=== PATIENT | male | born 2000 | race Caucasian/White ===

== ENCOUNTER 2019-12-05 17:21 | Emergency (ER) | payer OTHER ==
[~2019-12-05] VITALS: Ht 187.9 cm; Wt 90.7 kg
[~2019-12-05 17:21] MED LIST: MOTRIN400 MG PO; NAPROSYN500 MG PO; VIBRAMYCIN100 MG PO; ZITHROMAX Z PA250 MG PO
[2019-12-05 18:17] LABS: BASO % 0.7 % (0.0-1.0); EOS # 0.2 10*3/uL (0.0-0.4); EOS % 3.4 % (1.0-4.0); HEMATOCRIT 44.3 % (42.0-52.0); HEMOGLOBIN 15.2 g/dl (14.0-18.0); LYMPH # 1.2 10*3/uL (1.3-4.4); LYMPH % 20.8 % (27.0-41.0); MEAN CORPUSCULAR HGB 30.5 pg (27.0-31.0); MEAN CORPUSCULAR HGB CONC 34.3 g/dl (33.0-37.0); MEAN PLATELET VOLUME 11.4 fl (9.6-12.3); MONO # 0.9 10*3/uL (0.1-1.0); MONO % 15.6 % (3.0-9.0); NEUT # 3.5 10*3/uL (2.3-7.9); NEUT % 59.3 % (47.0-73.0); PLATELET COUNT AUTOMATED 277 10*3/uL (130-400); RED BLOOD COUNT 4.98 10*6/uL (4.50-5.90)
[2019-12-05 18:27] LABS: ACT PARTIAL THROMBO TIME 28.5 SECONDS (20.0-32.1)
[2019-12-05 18:34] LABS: ALBUMIN 4.3 gm/dl (3.1-4.5); ALKALINE PHOSPHATASE 61 U/L (45-117); BUN 14 mg/dl (7-24); CHLORIDE 107 mmol/L (98-107); CREATININE 0.97 mg/dL (0.70-1.30); POTASSIUM 4.1 mmol/L (3.5-5.1); SGOT/AST 17 IU/L (3-35); SGPT/ALT 21 U/L (12-78); SODIUM 140 mmol/L (136-145); TOTAL PROTEIN 7.9 gm/dL (6.4-8.2)
[2019-12-05 19:07] LABS: TROPONIN I < 0.015 ng/ml (<0.045)
[2019-12-05 22:50] VITALS: BP 126/74
== END 2019-12-05 22:55 | disposition admitted as inpatient to this hospital (09) ==
LOC: ED 17:21
PROVIDERS: Internal Medicine
DX: R07.89 Other chest pain (principal); F17.200 Nicotine dependence, unspecified, uncomplicated; Z88.0 Allergy status to penicillin; Z79.899 Other long term (current) drug therapy

== ENCOUNTER 2019-12-05 22:21 | Inpatient (IN) | payer OTHER ==
[~2019-12-05] VITALS: Ht 188 cm; Wt 98.5 kg
[2019-12-05 22:55] VITALS: BP 147/64
[2019-12-06] VITALS: BP 147/64
[2019-12-06 02:20] LABS: URINE AMPHETAMINES < 1000 (1000ng/ml); URINE BARBITURATES < 200 (200ng/ml); URINE BENZODIAZEPINES < 200 (200ng/ml); URINE CANNABINOIDS (THC) < 50 (50ng/ml); URINE COCAINE < 300 (300ng/ml); URINE METHADONE < 300 (300ng/ml); URINE OPIATES < 300 (300ng/ml)
[2019-12-06 02:21] LABS: URINE PHENCYCLIDINE < 25 (25ng/ml)
[2019-12-06 06:10] LABS: BUN 13 mg/dl (7-24); CHLORIDE 108 mmol/L (98-107); CHOLESTEROL 154 mg/dL (<200); CREATININE 0.93 mg/dL (0.70-1.30); HDL CHOLESTEROL 66 mg/dl (40-60); LDL CHOLESTEROL 81 mg/dL (9-159); PHOSPHOROUS 3.5 mg/dL (2.5-4.9); POTASSIUM 4.3 mmol/L (3.5-5.1); SODIUM 140 mmol/L (136-145); TRIGLYCERIDES 36 mg/dl (<150); VLDL CHOLESTEROL 7 mg/dL (6-40)
[2019-12-06 06:15] LABS: BASO % 0.6 % (0.0-1.0); EOS # 0.2 10*3/uL (0.0-0.4); EOS % 3.8 % (1.0-4.0); HEMOGLOBIN 14.6 g/dl (14.0-18.0); LYMPH # 1.7 10*3/uL (1.3-4.4); LYMPH % 31.7 % (27.0-41.0); MEAN CELL VOLUME 89.4 fl (80.0-94.0); MEAN CORPUSCULAR HGB 30.4 pg (27.0-31.0); MONO # 0.7 10*3/uL (0.1-1.0); MONO % 13.6 % (3.0-9.0); NEUT # 2.7 10*3/uL (2.3-7.9); NEUT % 50.1 % (47.0-73.0); PLATELET COUNT AUTOMATED 245 10*3/uL (130-400); RED BLOOD COUNT 4.81 10*6/uL (4.50-5.90); RED CELL DISTRI WIDTH 11.9 % (0-14.5); WHITE BLOOD COUNT 5.3 10*3/uL (4.8-10.8)
[2019-12-06 06:18] LABS: THYROID STIM HORMONE (HS) 0.926 uIU/ml (0.358-4.75)
[2019-12-06 08:00] VITALS: BP 131/66
[2019-12-06 12:00] VITALS: BP 123/62
[2019-12-06 16:00] VITALS: BP 129/65
[2019-12-06 20:00] VITALS: BP 128/65
[2019-12-07 01:17] VITALS: BP 111/53
[2019-12-07 08:00] VITALS: BP 109/65
[2019-12-07 12:00] VITALS: BP 126/53
[2019-12-07 16:00] VITALS: BP 132/61
[2019-12-07 20:00] VITALS: BP 126/55
[2019-12-08] VITALS: BP 123/59
[2019-12-08 07:40] VITALS: BP 118/78
[2019-12-08 11:22] LABS: FREE T4 1.06 ng/dl (0.76-1.46)
[2019-12-08 11:26] LABS: THYROID STIM HORMONE (HS) 1.22 uIU/ml (0.358-4.75)
[2019-12-08 12:00] VITALS: BP 121/53
[2019-12-08] MEDS ORDERED: MOTRIN IB200 M1 PO (15:28)
[2019-12-08 16:00] VITALS: BP 142/66
[2019-12-08 16:07] LABS: VITAMIN D, 25-HYDROXY 17.5 ng/mL (30-100)
== END 2019-12-08 13:20 | disposition home or self-care (01) | DRG 316 ==
LOC: EDHOLD 22:21 → 4E 22:21
PROVIDERS: Internal Medicine; Internal Medicine Cardiovascular Disease; Student in an Organized Health Care Education/Training Program; ADMIT Emergency Medicine
PROC: 4A02XM4 Measurement of Cardiac Total Activity, External Approach (ICD-10-PCS; principal; 2019-12-08)
DX: I31.9 Disease of pericardium, unspecified (principal); F41.9 Anxiety disorder, unspecified; E66.3 Overweight; J45.909 Unspecified asthma, uncomplicated; E87.8 Other disorders of electrolyte and fluid balance, not elsewhere classified; E83.41 Hypermagnesemia; Z68.27 Body mass index [BMI] 27.0-27.9, adult; Z88.0 Allergy status to penicillin

== ENCOUNTER → 2020-05-25 | Outpatient (CLI) | payer SELFPAY ==
[~2020-05-25] MED LIST changes: +MOTRIN IB200 M1 PO
== END | disposition home or self-care (01) ==
LOC: COVID19 05:28
DX: Z20.828 Contact with and (suspected) exposure to other viral communicable diseases (principal)

== ENCOUNTER 2021-07-24 16:05 | Emergency (ER) | payer SELFPAY ==
[~2021-07-24] VITALS: Ht 187.9 cm; Wt 95.3 kg
[2021-07-24 16:11] VITALS: BP 161/77
[2021-07-24] MEDS ORDERED: FLAGYL500 MG PO (17:41)
[2021-07-24] MEDS ORDERED: CLINDAMYCIN HC300 MG PO (17:41)
[2021-07-24] MEDS ORDERED: IBUPROFEN600 MG PO (17:41)
== END 2021-07-24 19:11 | disposition home or self-care (01) ==
LOC: ED 16:05
DX: S61.452A Open bite of left hand, initial encounter (principal); Z79.899 Other long term (current) drug therapy; Z88.0 Allergy status to penicillin; Z98.890 Other specified postprocedural states; W54.0XXA Bitten by dog, initial encounter; Y93.89 Activity, other specified; Y92.89 Other specified places as the place of occurrence of the external cause; Y99.8 Other external cause status

== ENCOUNTER 2021-07-27 17:21 | Emergency (ER) | payer SELFPAY ==
[~2021-07-27] VITALS: Ht 187.9 cm; Wt 99.8 kg
[~2021-07-27 17:21] MED LIST changes: +CLINDAMYCIN HC300 MG PO; +FLAGYL500 MG PO; +IBUPROFEN600 MG PO
[2021-07-27 17:47] VITALS: BP 144/96
== END 2021-07-27 20:30 | disposition home or self-care (01) ==
LOC: ED 17:21
DX: Z23 Encounter for immunization (principal); Z88.0 Allergy status to penicillin